=== PATIENT | female | born 1940 | race Caucasian/White ===

== ENCOUNTER 2019-11-16 08:27 | Outpatient (CLI) | payer OTHER ==
[~2019-11-16 08:27] MED LIST: ASPIR-LOW81 MG; COUMADIN2.5 MG; LANOXIN0.25 MG; METOPROLOL SUCC50 MG; PNEU16DI2
== END 2019-11-16 08:37 | disposition home or self-care (01) ==
LOC: LAB 08:27
DX: C43.71 Malignant melanoma of right lower limb, including hip (principal); I10 Essential (primary) hypertension; E78.2 Mixed hyperlipidemia; E03.8 Other specified hypothyroidism; D50.8 Other iron deficiency anemias